=== PATIENT | male | born 1945 | race Caucasian/White ===

== ENCOUNTER 2021-10-25 22:01 | Inpatient (IN) | payer MEDICARE, MEDICAID ==
[~2021-10-25] VITALS: Ht 198.1 cm; Wt 70.9 kg
[2021-10-26] MEDS ORDERED: ASPIRIN EC81 MG PO (11:17)
[2021-10-26] MEDS ORDERED: ATORVASTATIN CA20 MG PO (11:17)
[2021-10-26] MEDS ORDERED: METOPROLOL TART25 MG PO (11:18)
[2021-10-26] MEDS ORDERED: DONEPEZIL HCL5 MG PO (11:18)
[2021-10-26] MEDS ORDERED: FLOMAX 0.4 MG0.4 MG PO (11:18)
[2021-10-26] MEDS ORDERED: AMLODIPINE BESY10 MG PO (11:19)
[2021-10-26] MEDS ORDERED: CARBIDOPA-LEVO1 EA14 PO (11:19)
[2021-10-26] MEDS ORDERED: CILOSTAZOL50 MG PO (11:19)
[2021-10-26] MEDS ORDERED: HYDRALAZINE HCL50 MG PO (11:20)
[2021-10-26] MEDS ORDERED: GLUCOPHAGE 500500 MG PO (11:20)
[2021-10-26] MEDS ORDERED: SERTRALINE HCL25 MG PO (11:20)
[2021-10-26] MEDS ORDERED: CLONIDINE1 EAC1 TD (11:21)
[2021-10-26] MEDS ORDERED: FAMOTIDINE20 MG PO (11:21)
[2021-10-26 12:35] LABS: HEMOGLOBIN 9.8 gm/dl (14.0-17.5); RED BLOOD COUNT 3.33 M/UL (4.20-5.50); WHITE BLOOD COUNT 6.4 K/UL (4.5-11.0)
[2021-10-26 13:22] LABS: BUN/CREATININE RATIO 28 (0-10)
[2021-10-27 03:27] LABS: HEMOGLOBIN 9.7 gm/dl (14.0-17.5); RED BLOOD COUNT 3.3 M/UL (4.20-5.50); WHITE BLOOD COUNT 7.5 K/UL (4.5-11.0)
[2021-10-27 03:48] LABS: BUN/CREATININE RATIO 31 (0-10)
[2021-10-29 08:25] LABS: HEMOGLOBIN 10.6 gm/dl (14.0-17.5); RED BLOOD COUNT 3.62 M/UL (4.20-5.50)
[2021-10-29 08:55] LABS: BUN/CREATININE RATIO 25 (0-10)
[2021-10-30 05:03] LABS: HEMOGLOBIN 11.2 gm/dl (14.0-17.5); RED BLOOD COUNT 3.77 M/UL (4.20-5.50); WHITE BLOOD COUNT 7.2 K/UL (4.5-11.0)
[2021-10-30 05:26] LABS: BUN/CREATININE RATIO 22 (0-10)
[2021-10-31 03:30] LABS: HEMOGLOBIN 10.6 gm/dl (14.0-17.5); RED BLOOD COUNT 3.68 M/UL (4.20-5.50); WHITE BLOOD COUNT 8.8 K/UL (4.5-11.0)
[2021-10-31 03:39] LABS: BUN/CREATININE RATIO 19 (0-10)
[2021-11-01 07:38] LABS: HEMOGLOBIN 10.5 gm/dl (14.0-17.5); RED BLOOD COUNT 3.58 M/UL (4.20-5.50); WHITE BLOOD COUNT 8.9 K/UL (4.5-11.0)
[2021-11-01 08:19] LABS: BUN/CREATININE RATIO 14 (0-10)
[2021-11-02 09:07] LABS: RED BLOOD COUNT 3.46 M/UL (4.20-5.50); WHITE BLOOD COUNT 8.8 K/UL (4.5-11.0)
[2021-11-02 09:29] LABS: BUN/CREATININE RATIO 15 (0-10)
[2021-11-03 09:57] LABS: HEMOGLOBIN 10.2 gm/dl (14.0-17.5); RED BLOOD COUNT 3.45 M/UL (4.20-5.50); WHITE BLOOD COUNT 8.9 K/UL (4.5-11.0)
[2021-11-03 10:28] LABS: BUN/CREATININE RATIO 16 (0-10)
[2021-11-05 08:01] LABS: HEMOGLOBIN 10.3 gm/dl (14.0-17.5); RED BLOOD COUNT 3.42 M/UL (4.20-5.50); WHITE BLOOD COUNT 8.2 K/UL (4.5-11.0)
[2021-11-05 08:20] LABS: BUN/CREATININE RATIO 12 (0-10)
[2021-11-05] MEDS ORDERED: HYDRALAZINE HCL50 MG PO (09:21)
== END 2021-11-06 00:21 | disposition swing bed (61) | DRG 177 ==
LOC: MED SURG 4 10-26 10:42 → PROG CARE 10-26 10:42 → MED SURG 4 10-28 12:20
PROVIDERS: Internal Medicine; Internal Medicine Infectious Disease; Physician Assistant Medical; ADMIT Internal Medicine
PROC: B24BZZZ Ultrasonography of Heart with Aorta (ICD-10-PCS; principal; 2021-10-27)
PROC: 8E0ZXY6 Isolation (ICD-10-PCS; 2021-11-05)
DX: U07.1 COVID-19 (principal); I21.A1 Myocardial infarction type 2; E44.1 Mild protein-calorie malnutrition; Z68.1 Body mass index [BMI] 19.9 or less, adult; Z66 Do not resuscitate; E11.9 Type 2 diabetes mellitus without complications; G20 Parkinson's disease; I08.1 Rheumatic disorders of both mitral and tricuspid valves; F02.80 Dementia in other diseases classified elsewhere, unspecified severity, without behavioral disturbance, psychotic disturbance, mood disturbance, and anxiety; I10 Essential (primary) hypertension; E78.5 Hyperlipidemia, unspecified; E86.0 Dehydration; R11.2 Nausea with vomiting, unspecified; R19.7 Diarrhea, unspecified; I25.10 Atherosclerotic heart disease of native coronary artery without angina pectoris; R53.81 Other malaise; N40.0 Benign prostatic hyperplasia without lower urinary tract symptoms; Z95.1 Presence of aortocoronary bypass graft; Z86.73 Personal history of transient ischemic attack (TIA), and cerebral infarction without residual deficits; Z87.440 Personal history of urinary (tract) infections; I25.2 Old myocardial infarction; Z95.5 Presence of coronary angioplasty implant and graft; Z79.01 Long term (current) use of anticoagulants; Z79.82 Long term (current) use of aspirin
CPT/HCPCS: ECHO; 36415; 71045; 80048; 80053; 81001; 82550; 82553; 82962; 83036; 83735; 83880; 84100; 84443; 84484; 85025; 85027; 87086; 92610; 93005; 93306; 96372; 97110; 97110-GP-CQ; 97161; 97166; 97530; 97530-GP-CQ; G0378; G0379; J0696; J1650